=== PATIENT | female | born 1995 | race Caucasian/White ===

== ENCOUNTER 2019-09-30 20:54 | Emergency (ER) | payer BC ==
[~2019-09-30] VITALS: Ht 157.5 cm; Wt 49.9 kg
--- NOTE | 2019-09-30 21:11 | NUR ---
BILATERAL LOWER PELVIC PAIN RADIATES TO BACK X OVER A MONTH, WORSE WHEN ON LMP, DENIES ANY VB, REPORT N/V, CONSTIPATION, SEEN AT YESTERDAY. SENT [facility] FOR ULTRASOUND, R/O OVARIAN CYST/ENDOMETRIOSIS. NO ACUTE DISTRESS NOTED. RR EVEN AND UNLABORED ON RA. BF AT BEDSIDE. MADE COMFORTABLE AND READY FOR EVAL.
--- NOTE | 2019-09-30 21:37 | NUR ---
ULTRASOUND AT BEDSIDE
--- NOTE | 2019-09-30 22:01 | NUR ---
LAB AT BEDSIDE FOR BLOOD DRAW
--- NOTE | 2019-09-30 22:10 | NUR ---
BLOOD AND URINE SENT TO STAT LAB
[2019-09-30 22:14] LABS: BASOPHILS % (AUTO) 0.7 % (0.0-2.0); EOSINOPHILS % (AUTO) 3.1 % (0.0-6.0); HEMATOCRIT 46 % (33-45); HEMOGLOBIN 15.3 g/dL (11.5-14.8); LYMPHOCYTES # (AUTO) 3.4 /CMM (0.8-4.8); LYMPHOCYTES % (AUTO) 51.1 % (20.0-44.0); MEAN CORPUSCULAR HGB CONC 33 g/dl (31.0-36.0); MEAN CORPUSCULAR VOLUME 96 fL (82-100); MONOCYTES # (AUTO) 0.5 /CMM (0.1-1.30); MONOCYTES % (AUTO) 6.8 % (2.0-12.0); NEUTROPHILS # (AUTO) 2.6 /CMM (1.8-8.9); NEUTROPHILS % (AUTO) 38.3 % (43.0-81.0); PLATELET COUNT (AUTO) 210 /CMM (150-450); RED BLOOD CELL COUNT(AUTO) 4.83 MIL/uL (4.0-5.2); WHITE BLOOD COUNT (AUTO) 6.7 K/uL (4.3-11.0)
[2019-09-30 22:22] LABS: APPEARANCE,URINE Clear (CLEAR); BILIRUBIN,URINE Negative (NEGATIVE); BLOOD, URINE Negative Ery/uL (NEGATIVE); COLOR,URINE Yellow (YELLOW); KETONES,URINE Negative (NEGATIVE); LEUKOCYTE ESTERASE ,URINE Negative (NEGATIVE); NITRITE, URINE Negative (NEGATIVE); PH,URINE 5.5 (5.0-8.0); PROTEIN,URINE Negative (NEGATIVE); UGLUCOSE Negative (NEGATIVE); UROBILINOGEN,URINE 0.2 EU/dL (0.2)
[2019-09-30 22:23] LABS: CALCIUM, SERUM 9.2 mg/dL (8.5-10.1); POTASSIUM 3.4 mmol/L (3.5-5.1)
[2019-09-30 22:29] LABS: ALBUMIN 4.7 g/dL (3.4-5.0); BILIRUBIN,DIRECT 0.1 mg/dL (0.0-0.2); BILIRUBIN,TOTAL 0.2 mg/dL (0.2-1.0); TOTAL PROTEIN, SERUM 8.4 g/dL (6.4-8.2)
[2019-09-30] MEDS ORDERED: IV NS 0.9% 1,000 ML BAG IV ONE (22:30)
--- NOTE | 2019-09-30 22:30 | NUR ---
IV AND FLUIDS CANCELED PER DANIELA VARGAS. PT GIVEN JUICE.
--- NOTE | 2019-09-30 23:09 | NUR ---
Patient discharged to home in stable condition. Written and verbal after care instructions given. Patient verbalizes understanding of instruction.
[2019-09-30 23:10] VITALS: BP 110/70
== END 2019-09-30 23:10 | disposition home or self-care (01) ==
LOC: ER 20:58
DX: R10.2 Pelvic and perineal pain (principal); R11.2 Nausea with vomiting, unspecified; Z88.1 Allergy status to other antibiotic agents
CPT/HCPCS: 36415; 76856-TC; 80048-TC; 80076-TC; 81000-TC; 84703-TC; 85025-TC; 85730-TC; J7030